=== PATIENT | male | born 2000 | race Caucasian/White ===

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

== ENCOUNTER 2022-10-07 08:49 | Emergency (ER) | payer BC, SELFPAY ==
[2022-10-07 08:47] VITALS: BP 127/60; PULSE 106; RESP 20; TEMP 36.5; O2SAT 97
[2022-10-07 08:52] VITALS: O2SAT 98
[2022-10-07 08:53] VITALS: PULSE 97
--- NOTE | 2022-10-07 09:56 | ED.GENADULT ---
HPI - General Adult General Chief complaint: Seizure Stated complaint: seizure Time Seen by Provider: 10/07/22 09:56 Source: patient, family and EMS Mode of arrival: EMS Limitations: no limitations History of Present Illness HPI narrative: 23 years old white male brought to the emergency room by ambulance because of possible seizure-like activity. Patient was having fun with 2 of his friends suddenly felt weird like is going to have seizure. Patient never had seizures before. Patient tried to call 911 then start having shaking all over lasted for 1 minute. Patient came by ambulance, currently awake oriented x4. Denying any symptoms. His mom at the bedside who requested to sign AMA patient denies any alcohol intake or drug use or abuse. Also denies biting his tongue or urine incontinence or history of seizure. Related Data Allergies Allergy/AdvReac Type Severity Reaction Status Date / Time No Known Allergies Allergy Verified 10/07/22 08:54 Review of Systems Review of Systems: All systems reviewed & are unremarkable except as noted in HPI and below PMFSH Past Medical History Medical History Patient denies medical problems Surgical History Surgical History No significant past surgical history Social History Social History Smoking status: Current every day smoker Tobacco type: e-cigarettes/vaping Gender identity (if verbalized by the patient): Male Exam Narrative: General appearance: Well-developed, well-nourished Skin: Normal color Head: Normocephalic, nontraumatic Eyes: Clear conjunctiva ENT: Oropharynx normal, ears normal, nose normal Neck: Supple, nontender Chest and respiratory: Airway patent, no respiratory distress, no accessory muscle use Heart: Regular rate/rhythm Abdomen: Soft, nontender, no organomegaly, quiet bowel sounds Vascular: Normal peripheral pulses, normal capillary refill. Musculoskeletal: Normal range of motion, nontender back Neurologic: Alert and oriented ?3, COMM[employer]ER is normal as tested, no gross motor deficit Course Reevaluation(s) Reevaluation #1: I declare that I have personally explained to the patient the risks and consequences involved in leaving this facility at this time. the benefits of continued treatment and/or hospitalization. And the alternatives. If any. to continued treatment and/or hospitalization. if applicable.I have not identified any psychosis, drugs, mental illness, or medical illness that alters decision-making capacity (reasoning abilities ). Date: 10/07/22 Time: 10:06 Vital Signs Vital signs: Vital Signs Temperature 36.5 C 10/07/22 08:47 Pulse Rate 106 H 10/07/22 08:47 Respiratory Rate 20 10/07/22 08:47 Blood Pressure 127/60 10/07/22 08:47 Pulse Oximetry 97 10/07/22 08:47 Oxygen Delivery Room Air 10/07/22 08:47 Temperature 36.5 C 10/07/22 08:47 Pulse Rate 97 10/07/22 08:53 Respiratory Rate 20 10/07/22 08:47 Blood Pressure 127/60 10/07/22 08:47 Pulse Oximetry 98 10/07/22 08:52 Oxygen Delivery Room Air 10/07/22 08:52 Medical Decision Making MDM Narrative Medical decision making narrative: Is not sure if the patient had seizure-like activity or not, his colleagues did not come with him to the emergency room. His mom was at the bedside who does not know exactly what happened but she insisted to sign AMA because she is not worried about it.. Currently patient is awake, alert and oriented x4 agreed with his mom that he would like to sign AMA and go. Labs, CT head, EKG, chest x-ray
--- NOTE | 2022-10-07 10:09 | PC.NURSE ---
Pt refused, fluids, urine test and other test, Pt's mother at bedside, mom said he did take something and he just needs to rest and sleep and he will be fine, we have been through this a lot, he is leaving AMA . EDP made aware.
[2022-10-07 10:11] VITALS: BP 151/80; PULSE 99; RESP 20; O2SAT 100
[2022-10-07 10:18] LABS: Basophils Percent Auto 0.4 % (0.2-1.2); Eosinophils Percent Auto 0.4 % (0-4.4); Hematocrit 39.3 % (42.0-52.0); Hemoglobin 13.3 g/dL (14.0-18.0); Immature Granulocyte Absolute 0.03 K/mm3 (0.00-0.031); Immature Granulocyte Percent A 0.4 % (0-0.5); Lymphocytes Absolute Auto 1.52 K/mm3 (0.9-3.2); Lymphocytes Percent Auto 19.3 % (18.3-44.2); Mean Corpuscular HGB Conc 33.8 g/dl (32-36); Mean Corpuscular Hemoglobin 29.2 pg (26-34); Mean Corpuscular Volume 86.2 fl (80-100); Mean Platelet Volume 10.2 fl (7.4-10.4); Monocytes Absolute Auto 0.6 K/mm3 (0.1-0.6); Monocytes Percent Auto 7.8 % (2.6-8.5); Neutrophils Absolute Auto 5.6 K/mm3 (1.3-6.7); Neutrophils Percent Auto 71.7 % (45.5-73.1); Platelet Count Result 373 k/mm3 (150-375); Red Blood Count 4.56 M/mm3 (4.6-6.20); Red Cell Distribution Width 12.7 % (11.5-14.5); White Blood Count 7.9 K/mm3 (4.5-10.0)
[2022-10-07 10:28] LABS: Anion Gap 12 mmol/L (8-16); Blood Urea Nitrogen 11 mg/dL (9-20); Calcium 9.5 mg/dL (8.4-10.2); Carbon Dioxide 25 mmol/L (22-30); Chloride 101 mmol/L (98-107); Estimated CRCL calculation 115 ml/min; Estimated Glomerular Filt Rate > 60; Glucose 132 mg/dL (65-110); Potassium 4.4 mmol/L (3.4-5.0); Sodium 138 mmol/L (137-145)
== END 2022-10-07 10:15 | disposition left against medical advice (07) ==
PROVIDERS: Emergency Provider Emergency Medicine
DX: R56.9 Unspecified convulsions (principal)
CPT/HCPCS: 36415; 80048; 85025; 99283

== ENCOUNTER 2023-10-26 00:56 | Emergency (ER) | payer BC, SELFPAY ==
--- NOTE | ~2023-10-26 | XR_ITS ---
XR hand RT min 3V DATE: 10/26/2023 01:23 INDICATION: Fall. Right wrist and hand pain TECHNIQUE: 3 views COMPARISON: None FINDINGS: No fracture, dislocation, periosteal reaction or bone destruction, joint space target erosi ve change or chondrocalcinosis. IMPRESSION: Negative Reviewed, dictated and finalized at location A. IMPRESSION: Negative
--- NOTE | ~2023-10-26 | XR_ITS ---
XR wrist RT min 3V DATE: 10/26/2023 01:23 INDICATION: Fall. Right wrist and hand pain TECHNIQUE: 4 views COMPARISON: None FINDINGS: No fracture, dislocation, periosteal reaction or bone destruction or other significant bony or soft tissue abnormality. IMPRESSION: Negative Reviewed, dictated and finalized at location A. IMPRESSION: Negative
[2023-10-26 01:02] VITALS: BP 132/76; PULSE 67; RESP 15; TEMP 36.6; O2SAT 100
--- NOTE | 2023-10-26 03:25 | ED.GENADULT ---
HPI - General Adult General Chief complaint: Extremity Injury, Upper Stated complaint: My girlfriend thinks I broke my hand Time Seen by Provider: 10/26/23 03:07 History of Present Illness HPI narrative: Patient is a 23-year-old male who presents to the emergency department this night complaining of right hand pain. Patient states that he fell into a metal box earlier in the evening and his has been hurting him since. Patient did not think much of, however, his girlfriend was concerned that he may have broken his hand so she prompted him to come to the emergency department for further evaluation. Patient denies any additional injuries, denies hitting his head and denies any loss of consciousness. Patient also denies any numbness or tingling to his right hand and all 5 digits. There are no other modifying, alleviating, or precipitating factors at this time. Related Data Allergies Allergy/AdvReac Type Severity Reaction Status Date / Time No Known Allergies Allergy Verified 10/07/22 08:54 Review of Systems Review of Systems: All systems are reviewed and are negative unless stated otherwise in the HPI. [facility] Past Medical History Medical History Patient denies medical problems Surgical History Surgical History No significant past surgical history Social History Social History Smoking status: Current every day smoker Tobacco type: e-cigarettes/vaping Gender identity (if verbalized by the patient): Male Exam Narrative: General: Alert, awake, afebrile, in no acute distress. HEENT: PERRL, no rhinorrhea, no post nasal drip, oropharynx clear. Neck: Trachea midline, no JVD, no lymphadenopathy. Cardiovascular: Regular rate and rhythm, no murmurs, rubs or gallops, no peripheral edema. Respiratory: Clear to auscultation bilaterally, no tachypnea, no wheezing, no rhonchi, no rubs, no respiratory distress. Abdomen: Soft, nontender, nondistended, no rebound, no guarding, no peritoneal signs. Musculoskeletal: Mild swelling to the right hand over the 3rd and 4th MCP joints with a small abrasion overlying the right 4th MCP joint, intact sensation, flexion and extension at the PIP and the IP joints of all 5 digits, no deformity noted, intact radial and ulnar pulses, patient is neurovascularly intact. Skin: No rashes or petechia, no signs of infection. Psychiatric: Alert and oriented, normal behavior and judgment for situation. Neurological: Alert and oriented to person, place, and time. Follows all commands. No focal deficits, speech is clear and fluent. Course Vital Signs Vital signs: Vital Signs Temperature 97.8 F 10/26/23 01:02 Pulse Rate 67 10/26/23 01:02 Respiratory Rate 15 10/26/23 01:02 Blood Pressure 132/76 10/26/23 01:02 Pulse Oximetry 100 10/26/23 01:02 Temperature 97.8 F 10/26/23 01:02 Pulse Rate 89 10/26/23 03:48 Respiratory Rate 15 10/26/23 03:48 Blood Pressure 128/78 10/26/23 03:48 Pulse Oximetry 100 10/26/23 03:48 Medical Decision Making [facility] Narrative Medical decision making narrative: The patient was evaluated by myself in the emergency department. History is obtained from patient who is an independent historian and physical exam was performed. External medical records were reviewed at this time. Patient was administered 50 mg of IM Toradol for pain. Imaging studies obtained included a right hand and wrist x-rays which was independently interpreted by me revealing no acute process. X-rays were independently interpreted by me and are pending official radiology read. Differential diagnosis considerations include fractures, dislocations, and sprain. Comorbidities impacting this visit include none. I have evaluated and discussed social determinants of health with the patient that could p
[2023-10-26] MEDS: KETOROLAC 30 MG/ML VIAL (*BKC) 15 MG IM (03:46)
[2023-10-26 03:48] VITALS: BP 128/78; PULSE 89; RESP 15; O2SAT 100
== END 2023-10-26 03:49 | disposition home or self-care (01) ==
PROVIDERS: Emergency Provider Emergency Medicine
DX: S60.511A Abrasion of right hand, initial encounter (principal); F17.290 Nicotine dependence, other tobacco product, uncomplicated; W01.198A Fall on same level from slipping, tripping and stumbling with subsequent striking against other object, initial encounter
CPT/HCPCS: 73110; 73130; 96372; 99283; J1885

== ENCOUNTER 2023-11-03 20:57 | Emergency (ER) | payer BC, SELFPAY ==
--- NOTE | ~2023-11-03 | XR_ITS ---
EXAMINATION: XR hand RT min 3V DATE: 11/03/2023 21:19 INDICATION: Right hand injury. TECHNIQUE: 3 views of right hand were obtained. COMPARISON: Right hand radiographs 10/26/2023 FINDINGS: Bone alignment is normal. No fracture. Joint spaces are well maintained. IMPRESSION: 1. Normal right hand. Reviewed, dictated and finalized at location E. IMPRESSION: 1. Normal right hand.
[2023-11-03 21:01] VITALS: BP 146/109; PULSE 129; RESP 20; TEMP 37.2; O2SAT 96
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
== END 2023-11-03 21:49 | disposition home or self-care (01) ==
PROVIDERS: Emergency Provider Emergency Medicine
DX: S60.221A Contusion of right hand, initial encounter (principal); F17.290 Nicotine dependence, other tobacco product, uncomplicated; W22.8XXA Striking against or struck by other objects, initial encounter
CPT/HCPCS: 73130; 99283

== ENCOUNTER 2024-02-26 19:10 | Emergency (ER) | payer BC, SELFPAY ==
[2024-02-26 19:12] VITALS: BP 149/87; PULSE 111; RESP 16; TEMP 36.6; O2SAT 100
--- NOTE | 2024-02-26 19:20 | ECG_ITS ---
Test Date: 2024-02-26 19:24:14 Measurements Intervals [place] Rate: 111 P: 64 ME: 146 QRS: 31 QRSD: 106 T: 24 QT: 334 QTc: 456 Interpretive Statements BASELINE ARTIFACT/ POOR QUALITY ECG SINUS TACHYCARDIA OTHERWISE NORMAL ECG No previous ECG available for comparison Electronically Signed On 02-27-2024 07:12:44 CDT by Nolan Infante M.D.
[2024-02-26 19:37] LABS: Basophils Percent Auto 0.4 % (0.2-1.2); Eosinophils Absolute Auto 0.1 K/mm3 (0-0.3); Hematocrit 42.5 % (42.0-52.0); Hemoglobin 14.3 g/dL (14.0-18.0); Immature Granulocyte Absolute 0.05 K/mm3 (0.00-0.031); Immature Granulocyte Percent A 0.6 % (0-0.5); Lymphocytes Absolute Auto 3.01 K/mm3 (0.9-3.2); Lymphocytes Percent Auto 33.5 % (18.3-44.2); Mean Corpuscular HGB Conc 33.6 g/dl (32-36); Monocytes Absolute Auto 0.9 K/mm3 (0.1-0.6); Monocytes Percent Auto 9.5 % (2.6-8.5); Platelet Count Result 197 k/mm3 (150-375); Red Blood Count 4.62 M/mm3 (4.6-6.20); Red Cell Distribution Width 12.5 % (11.5-14.5)
[2024-02-26 19:47] LABS: Alanine Aminotransferase 22 U/L (6-50); Albumin Level 4.4 g/dL (3.5-5.1); Alkaline Phosphatase 85 U/L (38-126); Anion Gap 10 mmol/L (4-12); Aspartate Amino Transferase 24 U/L (17-59); Bilirubin,Total 0.6 mg/dL (0.2-1.3); Blood Urea Nitrogen 11 mg/dL (9-20); Carbon Dioxide 29 mmol/L (22-30); Chloride 97 mmol/L (98-107); Estimated CRCL calculation 125 ml/min; Estimated Glomerular Filt Rate > 60; Glucose 100 mg/dL (65-110); Potassium 3.8 mmol/L (3.4-5.0); Sodium 136 mmol/L (137-145)
[2024-02-26 19:53] LABS: Acetaminophen < 10 ug/mL (10-30); Ethanol < 10 mg/dL (<10); Salicylate < 1.0 mg/dL (2-20)
[2024-02-26 22:15] VITALS: BP 127/83; PULSE 84; RESP 16; O2SAT 99
[2024-02-26] MEDS: SODIUM CHLORIDE 0.9% IV 1,000 ML 999 ML IV CONT (22:15)
[2024-02-26 22:19] VITALS: BP 127/83; PULSE 93; RESP 18; RESP 20; O2SAT 100; O2SAT 98
[2024-02-26 22:21] LABS: Creatine Kinase 271 U/L (55-170)
--- NOTE | 2024-02-26 22:23 | PC.NURSE ---
Pt a&ox4, refusing covid swab.
--- NOTE | 2024-02-26 22:34 | PC.NURSE ---
Jenelle with poison control contacted. She states pt is past or ending peak times and to monitor signs and symptoms for supportive care. information on tramadol overdoses was faxed over.
[2024-02-26 22:45] VITALS: BP 116/68; PULSE 70; RESP 14
[2024-02-26 23:00] VITALS: BP 116/60; PULSE 75; RESP 15
[2024-02-26 23:53] VITALS: PULSE 74; RESP 12
[2024-02-27] VITALS: BP 113/57; PULSE 70; RESP 12
[2024-02-27 00:15] VITALS: BP 114/64; PULSE 71; RESP 15; O2SAT 100
--- NOTE | 2024-02-27 00:49 | ED.GENADULT ---
HPI - General Adult General Chief complaint: Overdose Stated complaint: overdose/opioids Time Seen by Provider: 02/26/24 21:57 History of Present Illness HPI narrative: Patient is a 43-year-old gentleman who presents emergency department with chief complaint of took too many tramadol. Patient reports he has been trying to get too high and he took 20 50 mg tramadol side from about noon and 5:00 p.m. patient states he decided to come to the emergency department because I got too high and was feeling too good and was concerned that he may have taken too much Related Data Allergies Allergy/AdvReac Type Severity Reaction Status Date / Time iodine Allergy Swelling Verified 11/03/23 21:04 Review of Systems Review of Systems: A 10 system review of systems was completed on the patient and is negative except for what is stated in the HPI. Nursing and ancillary documentation was reviewed. PMFSH Past Medical History Medical History Patient denies medical problems Surgical History Surgical History No significant past surgical history Social History Social History Smoking status: Current every day smoker Tobacco type: e-cigarettes/vaping Substance use type: prescription drug Gender identity (if verbalized by the patient): Male Exam Narrative: GENERAL: Well-appearing, well-nourished, and in no acute distress. HEAD: Normocephalic, atraumatic. EYES: PERRLA and EOMI. ENT: Nares clear, no rhinorrhea or epistaxis. Mucous membranes moist. NECK: Supple. CHEST: Clear to auscultation. No respiratory distress. HEART: Regular rate and rhythm. No murmur heard. Normal peripheral pulses. ABDOMEN: Soft, nontender, nondistended, normal active bowel sounds. EXTREMITIES: Normal range of motion. No edema. SKIN: Warm, dry, no rash. NEURO: No focal deficits. Alert and oriented x3. PSYCH: Normal mood and affect. Course Vital Signs Vital signs: Vital Signs Temperature 36.6 C 02/26/24 19:12 Pulse Rate 111 H 02/26/24 19:12 Respiratory Rate 16 02/26/24 19:12 Blood Pressure 149/87 H 02/26/24 19:12 Pulse Oximetry 100 02/26/24 19:12 Oxygen Delivery Room Air 02/26/24 19:12 Temperature 36.6 C 02/26/24 19:12 Pulse Rate 71 02/27/24 00:15 Respiratory Rate 15 02/27/24 00:15 Blood Pressure 114/64 02/27/24 00:15 Pulse Oximetry 100 02/27/24 00:15 Oxygen Delivery Room Air 02/26/24 22:19 Medical Decision Making MDM Narrative Medical decision making narrative: Differential diagnosis includes polysubstance overdose, aspiration pneumonia,, rhabdomyolysis, dehydration Laboratory studies were obtained the patient showed normal CBC normal CMP CPK was 271 TSH was 5.730 ETOH was negative Patient was observed in the emergency department is protecting his airway patient be discharged home to follow-up with his primary care provider Vital Signs Vital Signs: Vital Signs Temperature 36.6 C 02/26/24 19:12 Pulse Rate 111 H 02/26/24 19:12 Respiratory Rate 16 02/26/24 19:12 Blood Pressure 149/87 H 02/26/24 19:12 Pulse Oximetry 100 02/26/24 19:12 Oxygen Delivery Room Air 02/26/24 19:12 Temperature 36.6 C 02/26/24 19:12 Pulse Rate 71 02/27/24 00:15 Respiratory Rate 15 02/27/24 00:15 Blood Pressure 114/64 02/27/24 00:15 Pulse Oximetry 100 02/27/24 00:15 Oxygen Delivery Room Air 02/26/24 22:19 Lab Data 02/26/24 19:28 02/26/24 19:28 Labs: Lab Results 02/26/24 02/26/24 Range/Units 19:27 19:28 WBC 9.0 (4.5-10.0) K/mm3 RBC 4.62 (4.6-6.20) M/mm3 Hgb 14.3 (14.0-18.0) g/dL Hct 42.5 (42.0-52.0) % MCV 92.0 (80-100) fl MCH 31.0 (26-34) pg MCHC 33.6 (32-36) g/dl RDW 12.5 (11.5-14.5) % Plt Count 197
[2024-02-27 01:20] VITALS: BP 118/64; PULSE 72; RESP 18; TEMP 36.8; O2SAT 99
== END 2024-02-27 01:22 | disposition home or self-care (01) ==
PROVIDERS: Emergency Provider Emergency Medicine
DX: F19.10 Other psychoactive substance abuse, uncomplicated (principal); F17.290 Nicotine dependence, other tobacco product, uncomplicated; R00.0 Tachycardia, unspecified
CPT/HCPCS: 36415; 80053; 80307; 82550; 84443; 85025; 93005; 96360; 96361; 99283; J7030

== ENCOUNTER 2025-07-21 16:28 | Emergency (ER) | payer BC, SELFPAY ==
[2025-07-21 16:44] VITALS: BP 127/77; PULSE 73; RESP 16; TEMP 35.9; O2SAT 99
--- NOTE | 2025-07-21 16:52 | ED.DENTAL ---
HPI - Dental/Oral General Chief complaint: Dental/Oral Stated complaint: R side tooth infection Time Seen by Provider: 07/21/25 16:52 Source: patient Mode of arrival: ambulatory Limitations: no limitations History of Present Illness HPI Narrative: 25 yo M presents with R lower dental pain. hx of infection to same tooth. Has appt for multiple teeth to be pulled with dentist. All systems reviewed and negative except as noted above. Related Data Allergies Allergy/AdvReac Type Severity Reaction Status Date / Time iodine Allergy Swelling Verified 07/21/25 16:45 PMFSH Past Medical History Medical History Patient denies medical problems Surgical History Surgical History No significant past surgical history Social History Social History Smoking status: Current every day smoker Tobacco type: e-cigarettes/vaping Substance use type: prescription drug Gender identity (if verbalized by the patient): Male Comments At time of signature, agree with nursing past medical, surgical, social and family history. There is no relevant family history pertinent to the presenting complaint. Exam Narrative: GENERAL: This is a well-nourished, well-developed patient, in no apparent distress. HEAD: normocephalic, atraumatic. EYES: PERRL. Sclera clear/white. Vision is grossly intact. EARS: External ears normal NOSE: External nose normal MOUTH: tooth broken decayed #2 with surrounding erythema and swelling NECK: Neck supple, non-tender without lymphadenopathy, masses or thyromegaly. CARDIOVASCULAR: Regular rate and rhythm without murmurs, gallops, or rubs. RESPIRATORY: Clear to auscultation. Breath sounds equal bilaterally. No wheezes, rales, or rhonchi. SKIN: warm, Dry, intact with no suspicious lesions or rash, good texture and turgor. NEURO: awake, alert, and oriented to person, place and time. There were no obvious focal neurologic abnormalities. EXTREMITIES: No joint tenderness, effusion, or edema noted. Course Course Level of Care: Express Care Visit Vital Signs Vital signs: Vital Signs Temperature 35.9 C L 07/21/25 16:44 Pulse Rate 73 07/21/25 16:44 Respiratory Rate 16 07/21/25 16:44 Blood Pressure 127/77 07/21/25 16:44 Pulse Oximetry 99 07/21/25 16:44 Temperature 35.9 C L 07/21/25 16:44 Pulse Rate 73 07/21/25 16:44 Respiratory Rate 16 07/21/25 16:44 Blood Pressure 127/77 07/21/25 16:44 Pulse Oximetry 99 07/21/25 16:44 Reviewed MDM MDM Narrative Medical decision making narrative: will treat dental infection with clindamycin Differential Diagnosis Differential Diagnosis: Differential diagnostic considerations for dental issues include gingival abscess, dental caries, toothache, dental abscess, fracture of tooth, aphthous ulcer, TMJ. Discharge Plan Discharge Clinical Impression: Dental infection Patient Disposition: Home Condition: Stable Instructions: Antibiotic Form, Toothache (ED) Additional Instructions: take antibiotic as prescribed until gone. Take ibuprofen or Tylenol every 6-8 hours as needed for pain. See your dentist if infection is not improving. Patient Language: Welsh Prescriptions: New clindamycin HCl 300 mg capsule 300 mg PO QID 10 Days Qty: 40 0RF Follow-up/Referrals: PHYSICIAN,[employer] [facility] [Primary Care Provider, Internal Medicine] Time of Disposition: 16:55
== END 2025-07-21 16:58 | disposition home or self-care (01) ==
PROVIDERS: Emergency Provider Nurse Practitioner Family
DX: K04.7 Periapical abscess without sinus (principal); F17.290 Nicotine dependence, other tobacco product, uncomplicated
CPT/HCPCS: 99213; G0463